=== PATIENT | male | born 1960 | race Caucasian/White ===

== ENCOUNTER → 2024-07-09 09:56 | Outpatient (REF) | payer BC, SELFPAY | LOC: HWRAD 09:56 | PROVIDERS: ATTENDING PHYSICIAN Nurse Practitioner Adult Health | DX: Z87.891 Personal history of nicotine dependence (principal) | CPT/HCPCS: 71271 ==

== ENCOUNTER → 2024-11-23 07:43 | Outpatient (REF) | payer MEDICARE, OTHER, SELFPAY | LOC: RAD 07:43 | PROVIDERS: ATTENDING PHYSICIAN Nurse Practitioner Adult Health | DX: R22.1 Localized swelling, mass and lump, neck (principal) | CPT/HCPCS: 70491; Q9967 ==

== ENCOUNTER → 2025-02-04 11:46 | Outpatient (REF) | payer MEDICARE, OTHER, SELFPAY | LOC: MRI 3T 11:46 | PROVIDERS: ATTENDING PHYSICIAN Urology; FAMILY PHYSICIAN Nurse Practitioner Adult Health | DX: R97.20 Elevated prostate specific antigen [PSA] (principal) | CPT/HCPCS: 72197; A9575 ==

== ENCOUNTER 2025-04-28 07:34 | Emergency (ER) | payer MEDICARE, OTHER, SELFPAY ==
[2025-04-28 07:36] VITALS: BP 160/113
--- NOTE | 2025-04-28 07:48 | ED.GENMED ---
History of Present Illness
General
Chief Complaint: Musculo-Skeletal Complaint
Time Seen by Provider: 04/28/25 07:47
History of Present Illness
History of Present Illness:
FOCUSED PAST MEDICAL HISTORY
- High blood pressure
REVIEW OF OLD RECORDS
- The patient had minimally invasive right superior parathyroidectomy in July [address] Santiago
Note:
CHIEF COMPLAINT(S)
Elbow pain following physical exertion.
HISTORY OF PRESENT ILLNESS
The patient is a 64-year-old male who presented with pain in the elbow after an incident involving physical exertion while working on a fence. The patient describes pulling a pole up, resulting in a popping sensation and subsequent pain. The patient
reported no direct trauma to the elbow, such as falling onto it. The pain is primarily located around the elbow but can radiate downward. The patient demonstrates a full range of motion but notes pain, especially while flexing and extending the
elbow. He denies taking any pain medications. There is a suspicion of soft tissue injury such as involvement of cartilage, ligaments, or muscle. The patient has not consulted an quality measurement specialist previously.
PHYSICAL EXAM
General: Alert, no acute distress.
Skin: Warm, dry.
Head: Normocephalic, atraumatic.
Neck: Supple, trachea midline.
Eye Ears, nose, mouth, and throat: Oral mucosa moist.
Cardiovascular: Normal peripheral perfusion, No edema.
Respiratory: Respirations are non-labored.
Gastrointestinal: Abdomen nondistended
Back: Normal range of motion, Normal alignment.
Musculoskeletal: There is very good active range of motion into flexion at the right elbow, full extension is somewhat limited at the right elbow, there is excellent active range of motion into flexion and extension at the wrist, no significant
joint effusion, no significant soft tissue nor bony tenderness
Neurological: Alert and oriented to person, place, time, and situation, No focal neurological deficit observed.
Psychiatric: Cooperative, appropriate mood & affect.
PLAN
An x-ray of the elbow will be performed to rule out any bone abnormalities, such as avulsion of a part of the bone. The patient will be advised to follow up with an quality measurement specialist for further evaluation, especially if the symptoms persist, to
discuss the potential for an MRI. Pain management advice was offered, including [id number] medications like ibuprofen, but the patient declined.
DIFFERENTIAL DIAGNOSIS
The Differential Diagnosis includes, in no particular order and is not limited to:
1. Soft tissue injury (such as muscle strain or ligament sprain).
2. Elbow tendonitis.
3. Bursitis.
4. Epicondylitis (such as tennis elbow or golfers elbow).
5. Joint subluxation or instability.
6. Osteochondral lesion.
7. Partial tendon tear.
8. Cartilage injury.
9. Nerve impingement or injury (such as ulnar nerve entrapment).
10. Bone contusion without fracture.
RADIOLOGY
- I see no evidence of fracture and no significant joint effusion on x-ray
SUMMARY OF ENCOUNTER
The patient, a 64-year-old male, was seen in the emergency department for elbow pain following physical exertion. An x-ray of the elbow was performed, and my independent interpretation indicated no signs of fracture, dislocation, or joint effusion.
The findings suggest a muscular nature of the injury. The patient has been advised to follow up with an quality measurement specialist for further evaluation.
PLAN
The patient is advised to follow up with an quality measurement specialist for further assessment, especially if the symptoms persist. The use of a sling was discussed to help with discomfort but was deemed not necessary due to the absence of a dislocation
or major fracture. If the radiologist identifies any findings not previously observed, I will contact the patient.
INDEPENDENT REVIEW OF LABS AND INTERPRETATION OF TESTS
My independent interpretation of the x-ray shows no signs of fracture, dislocation, or joint effusion in the elbow.
PATIENT EDUCATION AND COUNSELING
The patient was informed about the muscular nature of the injury and the low likelihood of immediate surgical intervention. It was reiterated that following up with an quality measurement specialist could provide further insights into the condition.
MEDICATION RECONCILIATION
The possibility of pain management with [id number] medications like ibuprofen was discussed, but the patient declined any medication.
MEDICAL DECISION MAKING
- Number and Complexity of Problems Addressed: The patients condition involved a suspected soft tissue injury, potentially a muscular strain.
- Data:
Category 1: X-ray of the elbow was independently interpreted, showing no fracture, dislocation, or joint effusion.
Category 3: Management plans were discussed concerning orthopedic follow-up.
- Risk: Prescription medication was considered for pain management but declined by the patient.
DIAGNOSIS
Suspected muscular strain of the elbow (ICD-10 code: M79.1).
Past History
Past History
ED Past Medical History: HTN and Other (Kidney stones)
ED Past Surgical History: Urological
Social History
Tobacco: Non-smoker
Alcohol: Occasional
Drug: None
Personal:
Living: with family
Employment: Retired
Family History
Family History: Other
Phy Exam
Physical Exam
Physical Exam:
See HPI
Course
Orders/Labs/Results
Orders:
Orders
04/28/25 07:59
CR Elbow - Right Min 3 Views Urgent
Comment:
Reason For Exam: pulled awkwardly, pain R elbow
Vital Signs
Initial and Last Documented VS:
Initial Vital Signs
Temp Pulse Resp BP Pulse Ox
36.9 C 93 16 160/113 98
04/28/25 07:36 04/28/25 07:36 04/28/25 07:36 04/28/25 07:36 04/28/25 07:36
Last Documented Vital Signs
Temp Pulse Resp BP Pulse Ox
36.9 C 93 16 160/113 98
04/28/25 07:36 04/28/25 07:36 04/28/25 07:36 04/28/25 07:36 04/28/25 07:48
*Pulse Oximetry
SaO2: 98
Oxygen Mode of Delivery: Room air
Patient hypoxic: no
*Critical Care Note
Total Time (30-74mins, 75-104mins- exclusive of procedures): Not Applicable
ED Attending Note
-
Portions of this chart may have been created with voice recognition software.� Occasional wrong word or��sound alike� substitutions may have occurred due to the inherent limitations of voice recognition software.
Discharge Plan
Departure
Prescriptions:
No Action
rosuvastatin 10 mg Tablet
10 mg PO DAILY
candesartan 32 mg Tablet
32 mg PO DAILY
ibuprofen [Advil] 200 mg Tablet
400 mg PO Q6H PRN (Reason: pain)
Referrals:
UNKNOWN - PT DOES,NOT KNOW [Family Provider]
Interventions
Interventions:
*Risk Screen - Suicide Last Done: 04/28/25 07:36
*General Assessment Last Done: 04/28/25 07:36
*Neglect/Abuse Screening Last Done: 04/28/25 07:36
Discharge Date and Time
Print Language: IRISH
== END 2025-04-28 08:54 | disposition home or self-care (01) ==
LOC: EMR 07:34
PROVIDERS: EMERGENCY PHYSICIAN Emergency Medicine
DX: S59.901A Unspecified injury of right elbow, initial encounter (principal); X50.1XXA Overexertion from prolonged static or awkward postures, initial encounter; Y93.89 Activity, other specified; I10 Essential (primary) hypertension
CPT/HCPCS: 99283; 73080